=== PATIENT | female | born 1985 | race Caucasian/White ===

== ENCOUNTER 2021-01-18 09:58 | Outpatient (CLI) | payer OTHER, SELFPAY ==
--- NOTE | ~2021-01-18 | US_ITS ---
US abdomen complete DATE: 01/18/2021 10:29 INDICATION: Leukopenia TECHNIQUE: Real-time imaging and Doppler analysis of the abdomen COMPARISON: None FINDINGS: Normal caliber of the abdominal aorta. The inferior vena cava is unremarkable. No hepatic or pancreatic space-occupying mass lesion is evident. Normal hepatopedal portal venous tati w direction. No gallstones or gallbladder wall thickening or abnormal pericholecystic fluid collection. Negative s onographic Looney's sign. Common bile duct measures 4.5 mm, normal. No renal mass lesion or hydronephrosis. Normal splenic size. IMPRESSION: No significant abnormality Reviewed, dictated and finalized at [facility]. Reviewed, dictated and finalized at [facility]. IMPRESSION: No significant abnormality
== END 2021-01-18 09:59 | disposition home or self-care (01) ==
PROVIDERS: PCP Emergency Medicine; Visit Provider Internal Medicine Hematology & Oncology
DX: D72.819 Decreased white blood cell count, unspecified (principal)
CPT/HCPCS: 76700